=== PATIENT | female | born 1995 | race Caucasian/White ===

== ENCOUNTER → 2019-02-27 10:44 | Outpatient (CLI) | payer BC, SELFPAY ==
[2019-02-27 15:45] LABS: Chlamydia Trachomatis by PCR Negative (Negative); Neisserai gonorrhoeae by PCR Negative (Negative); Probe Check PASS; Sample Adequacy Control PASS; Specimen Processing Control PASS
== END ==
PROVIDERS: Visit Provider Obstetrics & Gynecology
DX: Z11.3 Encounter for screening for infections with a predominantly sexual mode of transmission (principal)
CPT/HCPCS: 87491; 87591

== ENCOUNTER → 2019-03-14 10:33 | Outpatient (CLI) | payer BC, SELFPAY ==
[2019-03-14 12:22] LABS: Color, Urine Yellow (Yellow); Glucose, Dipstick Normal (Normal); Ketone-Dipstick Negative (Negative); Leukocyte Esterase-Dipstick 500 /ul (Negative); Nitrite-Dipstick Negative (Negative); Occult Blood-Urine Negative /ul (Negative); Protein-Dipstick Negative (Negative); Specific Gravity, Urine 1.015 (1.002-1.030); Urine Bilirubin Dipstick Negative (Negative); Urine Clarity Clear (Clear); Urine Urobilinogen Normal (Normal)
[2019-03-14 12:26] LABS: Absolute Lymphocyte Count 1.67 X10^3/uL (0.83-4.51); Absolute Neutrophil Count 5.2 X10^3/uL (2.0-7.7); Basophil# 0.03 X10^3/uL; Basophil% 0.4 % (0-1); Eosinophil# 0.06 X10^3/uL; Eosinophils% 0.8 % (0-5); Hematocrit 42.3 % (37-47); Lymphocyte # 1.67 X10^3/ul (4.0); Lymphocyte % 22.5 % (19-41); Mean Corp Hgb Conc 33.1 g/dL (32-36); Mean Corpuscular Hgb 30.3 pg (27.0-32.0); Mean Corpuscular Volume 91.6 fL (81-99); Mean Platelet Vol. 11.4 fl (6.2-12.0); Monocyte# 0.43 X10^3/uL; Monocyte% 5.8 % (0-10); NRBC Flagged by Analyzer 0 % (0-5); Neutrophil # 5.23 X10^3/uL (2.7-7.7); Neutrophil % 70.4 % (47-70); Platelet Count 248 K/mm3 (150-450); RBC Distribution Width CV 12.6 % (11.6-14.6); RBC Distribution Width SD 42.4 fl (35.1-43.9); Red Blood Count 4.62 M/mm3 (4.2-5.4); White Blood Count 7.4 K/mm3 (4.4-11.0)
[2019-03-14 12:48] LABS: Thyroid Stim Hormone (TSH) 0.84 uIU/mL (0.358-3.74)
[2019-03-14 13:22] LABS: Amphetamine Urine VISTA NEGATIVE (<1000 ng/mL); Barbiturate Urine VISTA NEGATIVE (< 200 ng/mL); Benzodiazepine Urine VISTA NEGATIVE (< 200 ng/mL); Cocaine Urine VISTA NEGATIVE (< 300 ng/mL); Ecstacy Urine VISTA NEGATIVE (< 500 ng/mL); Methadone Urine VISTA NEGATIVE (< 300 ng/mL); PCP Urine VISTA NEGATIVE (< 25 ng/mL); THC Urine VISTA NEGATIVE (< 50 ng/mL); Vista UDS pH Range 6
[2019-03-14 13:46] LABS: HIV - WCH Non-Reactive (Nonreactive); Hepatitis B Surface Antigen Non-Reactive (Nonreactive); Hepatitis C Antibody Non-Reactive (Nonreactive); Rubella IgG 90.3 IU/mL
[2019-03-21 02:16] LABS: Prenatal RPR NONREACTIVE (NONREACTIVE)
== END ==
PROVIDERS: Visit Provider Advanced Practice Midwife
DX: Z34.81 Encounter for supervision of other normal pregnancy, first trimester (principal)
CPT/HCPCS: 36415; 80307; 81002; 84443; 85025; 86703; 86762; 86803; 87340

== ENCOUNTER → 2019-07-24 | Outpatient (CLI) | payer BC, SELFPAY ==
[2019-07-24 18:11] LABS: Hematocrit 35.2 % (37-47); Hemoglobin 11.6 g/dL (12.0-15.0); Mean Corpuscular Hgb 31.5 pg (27.0-32.0); Mean Corpuscular Volume 95.7 fL (81-99); Mean Platelet Vol. 12.5 fl (6.2-12.0); Platelet Count 190 K/mm3 (150-450); RBC Distribution Width CV 12.4 % (11.6-14.6); RBC Distribution Width SD 43.4 fl (35.1-43.9); Red Blood Count 3.68 M/mm3 (4.2-5.4); White Blood Count 7.2 K/mm3 (4.4-11.0)
[2019-07-24 18:15] LABS: Glucose Challenge Gest 1H 50g 83 mg/dL (70-140)
== END | disposition home or self-care (01) ==
PROVIDERS: Referring Provider Obstetrics & Gynecology; Visit Provider Obstetrics & Gynecology
DX: Z34.83 Encounter for supervision of other normal pregnancy, third trimester (principal)
CPT/HCPCS: 82950; 85027

== ENCOUNTER → 2019-09-19 18:09 | Outpatient (CLI) | payer BC, SELFPAY | PROVIDERS: Visit Provider Obstetrics & Gynecology | DX: Z36.85 Encounter for antenatal screening for Streptococcus B (principal) | CPT/HCPCS: 87081 ==

== ENCOUNTER → 2019-10-08 | Outpatient (CLI) | payer BC, SELFPAY | END | disposition home or self-care (01) | LOC: MTDU 17:43 | PROVIDERS: PCP Student in an Organized Health Care Education/Training Program; Referring Provider Obstetrics & Gynecology; Visit Provider Obstetrics & Gynecology | DX: Z11.59 Encounter for screening for other viral diseases (principal) | CPT/HCPCS: 87635; U0003 ==

== ENCOUNTER 2019-10-17 17:43 | Inpatient (IN) | payer BC, SELFPAY ==
[2019-10-17] VITALS (9 sets, daily range): BP systolic 108–132; BP diastolic 68–85; PULSE 56–75; TEMP 36.9–37.1; O2SAT 98–99; BMI 28.2
[2019-10-17] MEDS: Lactated Ringers 1,000 ML 50 ML IV (17:55)
[2019-10-17 18:32] LABS: Absolute Neutrophil Count 6.7 X10^3/uL (2.0-7.7); Basophil# 0.02 X10^3/uL; Basophil% 0.2 % (0-1); Eosinophil# 0.14 X10^3/uL; Eosinophils% 1.5 % (0-5); Hematocrit 37.5 % (37-47); Hemoglobin 12.5 g/dL (12.0-15.0); Lymphocyte % 20.3 % (19-41); Mean Corp Hgb Conc 33.3 g/dL (32-36); Mean Corpuscular Hgb 31.3 pg (27.0-32.0); Mean Platelet Vol. 13.9 fl (6.2-12.0); Monocyte# 0.56 X10^3/uL; NRBC Flagged by Analyzer 0 % (0-5); Neutrophil # 6.69 X10^3/uL (2.7-7.7); Neutrophil % 71.7 % (47-70); Platelet Count 166 K/mm3 (150-450); RBC Distribution Width CV 12.5 % (11.6-14.6); RBC Distribution Width SD 42.7 fl (35.1-43.9); Red Blood Count 3.99 M/mm3 (4.2-5.4); White Blood Count 9.3 K/mm3 (4.4-11.0)
--- NOTE | 2019-10-17 19:19 | HP.PCM_ITS ---
- Problem List (1) 40 weeks gestation of Status: Acute History Date of Admission: 10/17/19 Final ANATOLIY: 10/15/19 Final ANATOLIY Source: US <20 weeks Gestational age: 40 Weeks and 2 Days History of this : This is a 24 year-old, G [1], P [0], at 40 weeks gestational age. Allergies No Known Allergies Allergy (Verified 10/17/19 18:02) Home Medications: Home Medications Docusate Sodium [Colace] 100 mg PO DAILY 10/17/19 Vits [Prenatabs FA] 1 tab PO DAILY 10/17/19 Smoking Status: Never smoker Alcohol: None Number of Fetus(es): 1 NST - FHR Rate Baby A Baseline: 150 Variability:: Moderate Accelerations:: None Decelerations:: Variable NST Reactive:: Non-Reactive FHR Category:: Category II Uterine Activity:: quiet History Past Pregnancies: Past Pregnancies: None Labs: Mom's Problem List Problem Status Onset Code 40 weeks gestation of Acute [id number].[id number] Mom's Labs & Results 10/17/19 10/17/19 17:55 17:55 WBC 9.3 RBC 3.99 L Hgb 12.5 Hct 37.5 MCV 94.0 MCH 31.3 MCHC 33.3 RDW Std Deviation 42.7 RDW Coeff of Xavier 12.5 Plt Count 166 MPV 13.9 H Immature Gran % (Auto) 0.300 Neut % (Auto) 71.7 H Lymph % (Auto) 20.3 Summers % (Auto) 6.0 Eos % (Auto) 1.5 Baso % (Auto) 0.2 Absolute Neuts (auto) 6.7 Absolute Lymphs (auto) 1.90 Nucleated RBC % 0 Blood Type O POSITIVE Antibody Screen NEGATIVE Course Did the patient receive Yes care? Labs Blood Type: O RH: POSITIVE RPR/VDRL/Syphilis Nonreactive Rubella status Immune HbSAg Negative Date Done: 03/14/19 Chlamydia Negative Gonorrhea Negative HIV/AIDS Non-Reactive Group B Strep: Negative Current Obstetrical History Gestational Diabetes No Incompetent Cervix No Infertility No IUGR No Macrosomia No Hypertension/Pre-eclampsia No Placenta Previa/Abruption No PTL/PROM No Uterine anomaly No Oligohydramnios No Polyhydramnios No Multiple gestation No Past Medical History Asthma No Diabetes No Hypertension No Heart disease No Mitral valve prolapse No Neurologic/Seizure disorder/ No Migraines Kidney disease No Liver disease No Varicosities No Clotting disorders/Hx of DVT No Thyroid Dysfunction No Other medical diseases No Psychiatric disorders No Major trauma No Abnormal PAP smear No Sleep apnea No Mammogram in the last 2 years No Social History Marital Status: Alleged father isela nicholas Hx Smoking No Smoking Status Never smoker Expected Delivery Method: Spontaneous Vaginal Number of Visits: 14 Review of Systems Constitutional: Denies: Chills, Fever, Weight Change HEENT: Denies: Head Aches, Sinus Congestion, Sinus Drainage Cardiovascular: Denies: Chest Pain, Palpitations Respiratory: Denies: Cough, Shortness of breath at rest, Sputum production Gastrointestinal: Denies: Abdominal Pain, Nausea, Vomiting Genitourinary: Denies: Dysuria Musculoskeletal: Denies: Joint Pain, Joint Tenderness Skin: Denies: Rash, Wounds Neurological: Denies: Numbness, Tingling, Focal weakness Psychiatric: Denies: Anxiety, Depression, Homicidal Ideations, Suicidal Ideations Hematologic/ Lymphatic: Denies: Easy Bruising, Easy Bleeding Physical Exam Vitals: Vital Signs Temp Pulse BP Pulse Ox 98.8 F 66 120/78 99 10/17/19 17:52 10/17/19 17:56 10/17/19 17:56 10/17/19 17:56 General: Alert, Oriented x3, No apparent distress HEENT: Atraumatic, Normocephalic. Negative for: Thyromegaly, Lymphadenopathy Cardiovascular: Regular rate, Regular Rhythm Lungs: Clear to auscultation Abdomen: Bowel Sounds Present, Gravid Neurological: Deep Tendon Reflexes 2+/4 and Symmetrical, Neuro grossly intact VISUAL PRESENTATION MANAGER: Normal external genitalia. Negative for: Vulvar lesions Estimated gestational size: Appropriate for gestational size Presentation: Cephalic Cervix Dilation (cm): 2 Station: -1 Effacement (%): 50 Assessment/Plan All Active Problems 40 weeks gestation of (Acute) A/P: This is a 24 year-old, G [1], P [0], at 40 weeks gestational age. Elective induction of labor post term SVE 50/-1 NST Category I tracing AROM, clear fluid with bloody show If not having uterine contractions by 0200, will start low dose Pitocin protocol Plans in place for a Procedure Criteria Procedure Type: Elective COVID Risk Discussion: The surgeon/proceduralist and patient have discussed in detail the risk of exposure to and/or potential harm posed by the COVID-19 virus with having a surgery/procedure at this time versus the risk of delaying the surgery/procedure. It is not possible to know either the risk of delaying the surgery or procedure or chance of getting an infection with perfect accuracy, but a joint decision was made between the patient and the surgeon/proceduralist to proceed at this time with the scheduled surgery/procedure as indicated on the consent form.
[2019-10-17] MEDS: 0.9% Saline Lock 10 ML Syringe IV (20:00)
--- NOTE | 2019-10-17 20:48 | NURSING ---
Per Kt Flannery CNM, only start Pitocin at 0200 if patient is not having regular contractions.
[2019-10-18] VITALS (39 sets, daily range): BP systolic 107–143; BP diastolic 70–89; PULSE 60–137; RESP 16; TEMP 36.5–38.2; O2SAT 80–100
[2019-10-18] MEDS: Oxytocin 30 units/NS 500 ml 30 UNITS/500 ML IV.SOLN IV (02:29)
[2019-10-18] MEDS: Lactated Ringers 1,000 ML 200 ML IV (05:58)
--- NOTE | 2019-10-18 07:22 | PN.OBGYN_ITS ---
Patient Problems: Active and Suspected Problems 40 weeks gestation of (Acute) Subjective: Contractions are a 7/10 when peaking. Doing well though. Objective: VSS. UC Q1.5-3m. FHR baseline 140, +accels, -decels, moderate variability. - Physical Exam Vitals/I&O's: Vital Signs Temp Pulse BP Pulse Ox 98.0 F 66 130/88 H 99 10/18/19 08:17 10/18/19 07:21 10/18/19 07:21 10/18/19 07:21 Weight: 76.9 kg Body Mass Index (BMI) 28.2 Intake and Output for Last 24 Hours 10/16/19 10/17/19 10/18/19 23:59 23:59 23:59 Intake Total 104.17 / 104.17 1800.49 / 1800.49 Output Total 800 / 800 700 / 700 Balance -695.83 / -695.83 1100.49 / 1100.49 General: Alert, Oriented x3, Cooperative HEENT: Atraumatic, PERRLA, EOMI, Normocephalic Neck: Supple, No JVD, Negative Carotid Bruits Lungs: Clear to auscultation, Normal air movement Cardiovascular: Regular rate, No murmurs Abdomen: Bowel Sounds Present, Soft, Non Tender Extremities: No edema, Capillary Refill Less than 3 Seconds Skin: No rashes, No breakdown Musculoskeletal: No Tenderness to Palpation of Joints or Extremities Neurological: Cranial nerves II-XII grossly intact Psych/Mental Status: Normal Affect, Appropriate Laboratory Results 10/17/19 17:55: WBC 9.3, RBC 3.99 L, Hgb 12.5, Hct 37.5, MCV 94.0, MCH 31.3, MCHC 33.3, RDW Std Deviation 42.7, RDW Coeff of Xavier 12.5, Plt Count 166, MPV 13 .9 H, Immature Gran % (Auto) 0.300, Neut % (Auto) 71.7 H, Lymph % (Auto) 20.3, Lucas % (Auto) 6.0, Eos % (Auto) 1.5, Baso % (Auto) 0.2, Absolute Neuts (auto) 6.7, Absolute Lymphs (auto) 1.90, Nucleated RBC % 0 10/17/19 17:55: Blood Type O POSITIVE, Antibody Screen NEGATIVE Current Medications Acetaminophen (Tylenol) 325 - 650 mg PO Q4H PRN PRN PRN Reason: Pain Score 1-3/10 Al Hydroxide/Mg Hydroxide (Mylanta Ii) 15 - 30 ml PO Q4H PRN PRN PRN Reason: INDIGESTION Citric Acid/Sodium Citrate (Bicitra) 30 ml PO X1 PRN PRN Reason: Section Fentanyl Citrate (Sublimaze (100mcg Ampule)) 25 - 50 mcg IV Q2H PRN PRN PRN Reason: Pain Score 4-10/10 Lactated Ringer's () 500 mls @ 999 mls/hr IV .Q31M PRN PRN Reason: Epidural Lactated Ringer's () 500 mls @ 999 mls/hr IV .Q31M PRN PRN Reason: Corrective Measures Lactated Ringer's () 1,000 mls @ 50 mls/hr IV .Q20H CECILIA Last Admin: 10/18/19 05:58 Dose: 200 mls/hr Documented by: Oxytocin/Sodium Chloride () 30 units in 500 mls @ 1 mls/hr IV .Q500H [facility] Last Infusion: 10/18/19 05:15 Dose: 3 mls/hr Documented by: Ondansetron HCl (Zofran) 4 mg IV Q4H PRN PRN PRN Reason: NAUSEA Last Admin: 10/18/19 07:47 Dose: 4 mg Documented by: Prochlorperazine Edisylate (Compazine Iv) 10 mg IV Q6H PRN PRN PRN Reason: NAUSEA Sodium Chloride () 10 - 40 ml IV X1 PRN PRN Reason: SALINE FLUSH Last Admin: 10/18/19 07:47 Dose: 10 ml Documented by: Medical Necessity - Tobacco Use Smoking Status: Never smoker Assessment/Plan All Active Problems 40 weeks gestation of (Acute) A/P: SVE 6-7/90-0 UC 1.5-3m Active labor To continue natural labor Understands pain management options if wishing Expect
[2019-10-18] MEDS: 0.9% Saline Lock 10 ML Syringe IV (07:47)
[2019-10-18] MEDS: Ondansetron 4 MG/2 ML Vial IV (07:47)
[2019-10-18] MEDS: Oxytocin 30 units/NS 500 ml 30 UNITS/500 ML IV.SOLN 334 UNITS IV (09:30)
--- NOTE | 2019-10-18 10:07 | PCM.OPRPT ---
Problem List (1) 40 weeks gestation of Status: Acute Vaginal Delivery Maternal Presentation: Elective Induction Method of Induction: Amniotomy Amniotic Membrane Rupture Type: Artificial Amniotic Fluid Description: Clear Final ANATOLIY: 10/15/19 Final ANATOLIY Source: US <20 weeks Gestational age: 40 Weeks and 3 Days Date of Procedure: 10/18/19 Pre-Operative Diagnosis: IOL Post-Operative Diagnosis: Surgery/ Procedure Performed: Spontaneous Vaginal Delivery Type of Anesthesia: Local with 1% lidocaine Description of Procedure: Patient was FD at +2 station with spontaneous urge to push. She pushed well to deliver head in OA to DAVID. Snug shoulders noted and body delivered with gentle traction by CNM with maternal efforts. The was placed on the maternal abdomen. The cord was doubly clamped and cut when pulsation ceased by FOB under CNM supervision at approximately 4 minutes of life and further attended by nursery personnel. Cord blood was obtained. With gentle traction the placenta delivered spontaneously and appeared intact on inspection. With fundal massage, uterine bleeding noted. IV Pitocin started wide open. Manual expression of small blood clots from uterine cavity. Bleeding then well controlled. Second degree perineal/vaginal floor laceration noted. Repaired with a 3.0 rapide double with local Lidocaine 1%. EBL 400. Apgars 8/9. Sponge and needle counts correct x 2. Presentation: Vertex, DAVID Placental Delivery Description: Spontaneous Placenta Disposition: [facility] Cord Vessel Description: 3 Vessels Cord Entanglement: None Estimated Blood Loss: 400 Infant A gender: Female (1 minute): 8 (5 minute): 9 Episiotomy Description: None Laceration: Perineal Extension/lac, 2nd degree Medications given after delivery: IV Pitocin
[2019-10-18] MEDS: Methylergonovine 0.2 MG/ML Ampul IM (11:20)
[2019-10-18] MEDS: Ibuprofen 600 MG Tablet PO (11:41)
--- NOTE | 2019-10-18 16:53 | DCINST_ITS ---
Discharge Diet: No Restrictions Discharge Activity: Return to Normal Activity, May not drive while taking narcotic pain medications., May Shower May resume sexual activity in: 4-6 weeks Additional Activity Instructions:: Nothing in the vagina for 4-6 weeks. You may return to work/school in 6 weeks. Call your doctor if your incision/area has: Continuous Slow Oozing, Sudden Increased Bleeding, Increased Pain/ Swelling, Increased Redness, Foul Smelling Discharge Additional Instructions: If you experience any of the following, contact your healthcare provider. * Bleeding that soaks a pad every hour for 2 hours * Fever 100.4 or higher * Unrelieved incision or abdominal pain * Swelling, redness, discharge or bleeding from your incision or episiotomy site * Your incision begins to separate * Problems urinating (including inability to urinate or burning while urinating). * Visual changes * Severe headache * Flu-like symptoms * Pain or redness in one of both of your breasts * Pain, warmth, tenderness or swelling in your legs, especially the calf area * Frequent nausea and vomiting * Symptoms of depression or anxiety If you experience any of the following, call 911 or go to the nearest Emergency Room. * Chest pain * Problems breathing * Seizure activity * Partial or complete paralysis of a body part, slurred speech, weakness or drooping of the face, or a sudden inability to walk or hold your balance Allergies/Adverse Reactions: Allergies No Known Allergies Allergy (Verified 10/17/19 18:02) Medications to take at Discharge Docusate Sodium [Colace] 100 mg PO DAILY 10/17/19 Vits [Prenatabs FA] 1 tab PO DAILY 10/17/19 Please Follow Up With: Delma Flannery CNM When: Call to make an appointment with your CNM for a 2 week telehealth appointment and a routine 6 week appointment. Primary Care Physician: Luis Lisa DO [Primary Care Provider] - Test Results: Test results from this visit will be discussed in further detail at your follow- up appointment, if applicable.
[2019-10-19 04:28] VITALS: BP 117/74; PULSE 74
[2019-10-19 04:30] VITALS: BP 117/74; PULSE 74; RESP 18; TEMP 37.1
--- NOTE | 2019-10-19 04:38 | NURSING ---
Upon assessment of patient's bleeding, clot noted in patient's pad. Clot was smaller than a golf ball, but larger than a quarter. Educated patient on appropriate amounts of bleeding. Patient states that she noticed a clot about the same size in her pad earlier. Fundus remains 2 below, firm, and midline.
[2019-10-19 04:56] LABS: Hematocrit 30.1 % (37-47); Hemoglobin 10.1 g/dL (12.0-15.0); Mean Corp Hgb Conc 33.6 g/dL (32-36); Mean Corpuscular Hgb 31.4 pg (27.0-32.0); Mean Corpuscular Volume 93.5 fL (81-99); Mean Platelet Vol. 13.7 fl (6.2-12.0); Platelet Count 142 K/mm3 (150-450); RBC Distribution Width CV 12.5 % (11.6-14.6); RBC Distribution Width SD 42.9 fl (35.1-43.9); Red Blood Count 3.22 M/mm3 (4.2-5.4); White Blood Count 15.3 K/mm3 (4.4-11.0)
[2019-10-19 05:03] LABS: Scan Indicated on CBC? Y/N NO
[2019-10-19 08:20] VITALS: BP 130/86; PULSE 94; RESP 16; TEMP 36.1
[2019-10-19] MEDS: Ibuprofen 600 MG Tablet PO (08:22)
[2019-10-19 08:23] VITALS: BP 130/86; PULSE 94
--- NOTE | 2019-10-19 09:27 | PCM.PN.OB ---
Patient Problems: Active and Suspected Problems 40 weeks gestation of (Acute) Subjective: Denies pain, just mild cramping. Denies heavy bleeding. is going okay at times, but having latch issues. Has been up out of bed ambulating in her room, tolerating a regular diet, urinating well and passing flatus. Objective: VSS. Fundus is firm, midline, u/1. Lochia rubra moderate. - Physical Exam Vitals/I&O's: Vital Signs Temp Pulse Resp BP Pulse Ox 97 F L 94 16 130/86 H 98 10/19/19 08:20 10/19/19 08:23 10/19/19 08:20 10/19/19 08:23 10/18/19 20:48 Oxygen Delivery Method Room Air Weight: 76.9 kg Body Mass Index (BMI) 28.2 Intake and Output for Last 24 Hours 10/17/19 10/18/19 10/19/19 23:59 23:59 23:59 Intake Total 104.17 / 104.17 2996.22 / 2996.22 Output Total 800 / 800 750 / 750 Balance -695.83 / -695.83 2246.22 / 2246.22 General: Alert, Oriented x3, Cooperative HEENT: Atraumatic, PERRLA, EOMI, Normocephalic Neck: Supple, No JVD, Negative Carotid Bruits Lungs: Clear to auscultation, Normal air movement Cardiovascular: Regular rate, No murmurs Abdomen: Bowel Sounds Present, Soft, Non Tender Extremities: No edema, Capillary Refill Less than 3 Seconds Skin: No rashes, No breakdown Musculoskeletal: No Tenderness to Palpation of Joints or Extremities Neurological: Cranial nerves II-XII grossly intact Psych/Mental Status: Normal Affect, Appropriate Laboratory Results 10/19/19 04:45: WBC 15.3 H, RBC 3.22 L, Hgb 10.1 L, Hct 30.1 L, MCV 93.5, MCH 31.4, MCHC 33.6, RDW Std Deviation 42.9, RDW Coeff of Xavier 12.5, Plt Count 142 L, MPV 13.7 H Current Medications Acetaminophen (Tylenol) 1,000 mg PO Q8H PRN PRN PRN Reason: Pain Score 1-3/10 Bisacodyl (Dulcolax) 10 mg RECTAL UD PRN PRN Reason: If no BM Hydrocortisone (Hytone) 1 applic TOPICAL TID PRN PRN; Protocol PRN Reason: Discomfort Ibuprofen (Motrin) 600 mg PO Q6H PRN PRN PRN Reason: Pain Score 1-3/10 Last Admin: 10/19/19 08:22 Dose: 600 mg Documented by: Methylergonovine Maleate (Methergine) 0.2 mg IM X1 PRN PRN Reason: Excess bleeding/uterine atony Last Admin: 10/18/19 11:20 Dose: 0.2 mg Documented by: Ondansetron HCl (Zofran) 4 mg IV Q4H PRN PRN PRN Reason: Nausea Oxycodone HCl (Oxyir) 5 - 10 mg PO Q4H PRN PRN PRN Reason: Pain Score 4-10/10 Senna/Docusate Sodium (Senokot-S, Mayra-Colace) 1 - 2 tablet PO DAILY PRN PRN PRN Reason: Constipation Simethicone (Mylicon) 80 mg PO PCHS PRN PRN Reason: Indigestion/Stomach pain Sodium Chloride () 5 - 15 ml IV UD PRN PRN Reason: SALINE FLUSH Throat Lozenges (Dermoplast (Sp)) 1 applic TOPICAL 4X/DAY PRN PRN; Protocol PRN Reason: Pain/Inflammation Last Admin: 10/18/19 12:44 Dose: 1 applic Documented by: Medical Necessity - Tobacco Use Smoking Status: Never smoker Assessment/Plan All Active Problems 40 weeks gestation of (Acute) A/P: S/P Day #1 Normal involution and course mother, having latching issues. Working with currently Wants to discharge today, but may wait until later today or tomorrow for support Mother and father educated on support, signs of depression, normal involution and lochia, and resting at home Dyad stable May discharge today or tomorrow
[2019-10-19 13:37] VITALS: BP 97/55; PULSE 84
[2019-10-19 14:00] VITALS: BP 97/55; PULSE 84; RESP 15; TEMP 37.1
--- NOTE | 2019-10-19 15:10 | NURSING ---
discharge instructions given pt verbalizes understanding; denies need for any further or maternal care teaching; Lilian into assist with nursing
== END 2019-10-19 16:25 | disposition home or self-care (01) | DRG 807 ==
PROVIDERS: Admitting Provider Obstetrics & Gynecology; PCP Student in an Organized Health Care Education/Training Program; Visit Provider Obstetrics & Gynecology
DX: O48.0 Post-term pregnancy (principal); Z37.0 Single live birth; Z3A.40 40 weeks gestation of pregnancy; O70.1 Second degree perineal laceration during delivery
CPT/HCPCS: 59025; 59050; 85025; 85027; 86850; 86900; 86901; 99218; J7120; A4216; G0378; J2405

== ENCOUNTER → 2019-11-27 11:50 | Outpatient (CLI) | payer BC, SELFPAY ==
[2019-10-17 17:59] VITALS: BMI 28.2
[2019-11-29 16:08] LABS: Age Gdln ACOG Testing 21-29 (.)
[2019-11-30 13:02] LABS: HPV Reflexed? NOT INDICATED
== END ==
PROVIDERS: PCP Student in an Organized Health Care Education/Training Program; Visit Provider Obstetrics & Gynecology
DX: Z12.4 Encounter for screening for malignant neoplasm of cervix (principal)
CPT/HCPCS: 88175; G0145

== ENCOUNTER → 2020-09-07 | Outpatient (CLI) | payer BC, SELFPAY ==
[2019-10-17 17:59] VITALS: BMI 28.2
[2020-09-10 03:07] LABS: Chlamydia By Nucleic Acid AMP Negative (Negative)
[2020-09-10 08:42] LABS: Gonococcus By Nucleic Acid AMP Negative (Negative)
== END | disposition home or self-care (01) ==
LOC: LABSPEC 09-08 09:09
PROVIDERS: PCP Student in an Organized Health Care Education/Training Program; Visit Provider Obstetrics & Gynecology
DX: Z11.3 Encounter for screening for infections with a predominantly sexual mode of transmission (principal)
CPT/HCPCS: 87491; 87591

== ENCOUNTER → 2020-09-21 15:59 | Outpatient (CLI) | payer BC, SELFPAY ==
[2019-10-17 17:59] VITALS: BMI 28.2
[2020-09-21 17:15] LABS: Absolute Neutrophil Count 5.6 X10^3/uL (2.0-7.7); Basophil# 0.03 X10^3/uL; Basophil% 0.3 % (0-1); Eosinophil# 0.13 X10^3/uL; Eosinophils% 1.5 % (0-5); Hematocrit 42.6 % (37-47); Lymphocyte % 27.9 % (19-41); Mean Corp Hgb Conc 32.9 g/dL (32-36); Mean Corpuscular Hgb 30.4 pg (27.0-32.0); Mean Corpuscular Volume 92.4 fL (81-99); Mean Platelet Vol. 11.3 fl (6.2-12.0); Monocyte# 0.45 X10^3/uL; Monocyte% 5.2 % (0-10); NRBC Flagged by Analyzer 0 % (0-5); Neutrophil # 5.56 X10^3/uL (2.7-7.7); Neutrophil % 64.8 % (47-70); Platelet Count 287 K/mm3 (150-450); RBC Distribution Width CV 12.2 % (11.6-14.6); RBC Distribution Width SD 41.9 fl (35.1-43.9); Red Blood Count 4.61 M/mm3 (4.2-5.4); White Blood Count 8.6 K/mm3 (4.4-11.0)
[2020-09-22 09:11] LABS: HIV - WCH Non-Reactive (Nonreactive); Hepatitis B Surface Antigen Non-Reactive (Nonreactive); Hepatitis C Antibody Non-Reactive (Nonreactive); Rubella IgG Reactive (Nonreactive); Syphilis Antibodies Non-reactive
== END ==
PROVIDERS: PCP Student in an Organized Health Care Education/Training Program; Visit Provider Obstetrics & Gynecology
DX: Z34.81 Encounter for supervision of other normal pregnancy, first trimester (principal)
CPT/HCPCS: 36415; 85025; 86703; 86762; 86780; 86803; 87086; 87340

== ENCOUNTER → 2021-01-15 15:17 | Outpatient (CLI) | payer BC, SELFPAY ==
[2021-01-15 16:13] LABS: Hematocrit 37.8 % (37-47); Hemoglobin 12.3 g/dL (12.0-15.0); Mean Corp Hgb Conc 32.5 g/dL (32-36); Mean Corpuscular Hgb 31.3 pg (27.0-32.0); Mean Corpuscular Volume 96.2 fL (81-99); Mean Platelet Vol. 12.2 fl (6.2-12.0); Platelet Count 194 K/mm3 (150-450); RBC Distribution Width CV 12.6 % (11.6-14.6); RBC Distribution Width SD 44.8 fl (35.1-43.9); Red Blood Count 3.93 M/mm3 (4.2-5.4)
[2021-01-15 16:23] LABS: Glucose Challenge Gest 1H 50g 88 mg/dL (70-140)
== END ==
PROVIDERS: PCP Student in an Organized Health Care Education/Training Program; Visit Provider Obstetrics & Gynecology
DX: Z34.82 Encounter for supervision of other normal pregnancy, second trimester (principal)
CPT/HCPCS: 36415; 82950; 85027

== ENCOUNTER → 2021-03-31 | Outpatient (CLI) | payer BC, SELFPAY | END | disposition home or self-care (01) | LOC: LABSPEC 16:42 | PROVIDERS: PCP Student in an Organized Health Care Education/Training Program; Visit Provider Obstetrics & Gynecology | DX: Z36.85 Encounter for antenatal screening for Streptococcus B (principal) | CPT/HCPCS: 87081 ==

== ENCOUNTER 2021-04-26 17:20 | Inpatient (IN) | payer BC, SELFPAY ==
[2021-04-26] VITALS (12 sets, daily range): BP systolic 107–135; BP diastolic 62–84; PULSE 65–82; TEMP 36.3–36.4; O2SAT 96; BMI 28.3
[2021-04-26] MEDS: Lactated Ringers 1,000 ML 50 ML IV (17:40)
[2021-04-26 18:28] LABS: Absolute Lymphocyte Count 2.36 X10^3/uL (0.83-4.51); Absolute Neutrophil Count 7.9 X10^3/uL (2.0-7.7); Basophil# 0.02 X10^3/uL; Basophil% 0.2 % (0-1); Eosinophil# 0.08 X10^3/uL; Eosinophils% 0.7 % (0-5); Hematocrit 35.6 % (37-47); Hemoglobin 12.1 g/dL (12.0-15.0); Lymphocyte # 2.36 X10^3/ul (0.83-4.51); Lymphocyte % 21.5 % (19-41); Mean Corpuscular Hgb 30.1 pg (27.0-32.0); Mean Corpuscular Volume 88.6 fL (81-99); Mean Platelet Vol. 13.6 fl (6.2-12.0); Monocyte# 0.56 X10^3/uL; Monocyte% 5.1 % (0-10); NRBC Flagged by Analyzer 0 % (0-5); Neutrophil # 7.92 X10^3/uL (2.7-7.7); Neutrophil % 72.2 % (47-70); Platelet Count 202 K/mm3 (150-450); RBC Distribution Width CV 12.4 % (11.6-14.6); RBC Distribution Width SD 40.2 fl (35.1-43.9); Red Blood Count 4.02 M/mm3 (4.2-5.4)
[2021-04-26] MEDS: Oxytocin 30 units/NS 500 ml 30 UNITS/500 ML IV.SOLN 334 UNITS IV (18:38)
--- NOTE | 2021-04-26 18:44 | PCM.HP.BLA ---
History and Physical Date of Admission: 04/26/21 HPI: 26-year-old G2, P1 at 40/4 weeks, ANATOLIY 04/26/2021 by LMP, admitted in labor. Patient was 5 cm in office last week and is now 6 cm with regular contractions. Denies leaking of fluid, vaginal bleeding. Reports movement. Denies headache, vision changes, chest pain or shortness of breath, nausea or vomiting, diarrhea or constipation, fevers or chills. 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 G2: Current Medical history: Denies Surgical history: Denies Medications: vitamin Family history: Hypertension, otherwise noncontributory Allergies: No known drug allergies Social: Denies tobacco, alcohol, drug use Review of systems: Negative otherwise stated as above Physical exam Vitals:Blood pressure 97/55 heart rate 84 respiratory rate 15 temp 98.7 ?F General: Uncomfortable with contractions, otherwise in no acute distress HEENT: Normocephalic/atraumatic, PERRLA Cardiorespiratory: No increased effort, heart regular rate Abdomen: Soft, nontender, gravid Extremities: Minimal edema Neurologic: Cranial nerves II through XII grossly intact Musculoskeletal: Full range of motion and strength 5/5 all extremities Cervical exam: 6/70/0, AROM clear fluids heart rate: 140/moderate variability/+accel/variable decel x1 [place]: Every 3 panel O+ HIV negative Hepatitis B/hepatitis C negative/negative Gonorrhea/chlamydia negative Syphilis negative Rubella immune GBS neg 03/31 Assessment/plan: 26-year-old G2, P1 at 40/4 weeks, ANATOLIY 04/26/2021 by LMP, admitted in labor. -Routine orders -Plans no epidural -Plan for intermittent auscultation -Expectant management at this time
--- NOTE | 2021-04-26 18:51 | OP.PCM_ITS ---
Maternal Data Information Final ANATOLIY: 04/26/21 Final ANATOLIY Source: LMP Vaginal Delivery Maternal Presentation Maternal Presentation: Active Labor Operative Information Date of Procedure: 04/26/21 Pre-Operative Diagnosis: Bess intrauterine Post-Operative Diagnosis: Bess intrauterine Surgery / Procedure Performed: Spontaneous Vaginal Delivery Type of Anesthesia: None Estimated Blood Loss: 350cc Findings Description of Procedure: Spontaneous vaginal delivery of viable male. No nuchal cord. Baby to mom. Cord clamped and cut. Spontaneous delivery of placenta . Periurethral abrasion, hemostatic. Infant A Gender: Male (1 minute): 8 (5 minute): 9
[2021-04-26] MEDS: Ibuprofen 600 MG Tablet PO (19:11)
[2021-04-26] MEDS: Dibucaine 30 GM Tube 1 APPLIC TOPICAL (19:12)
[2021-04-26] MEDS: Acetaminophen 500 MG Tablet 1000 MG PO (19:12)
[2021-04-26] MEDS: Benzocaine/Lanolin/Aloe Vera 1 SPRAY EACH TOPICAL (19:12)
[2021-04-27 01:09] VITALS: BP 120/81; PULSE 75; RESP 16; TEMP 36.3; O2SAT 97
[2021-04-27 03:25] VITALS: BP 114/72; PULSE 73; RESP 16; TEMP 36.4; O2SAT 97
--- NOTE | 2021-04-27 08:50 | PCM.PN.OB ---
Subjective Subjective No issues overnight. Doing well and is without complaints. is going well. Denies heavy lochia. Objective Data Objective Data Vital Signs: Vital Signs Temp Pulse Resp BP Pulse Ox 97.5 F L 73 16 114/72 97 04/27/21 03:25 04/27/21 03:25 04/27/21 03:25 04/27/21 03:25 04/27/21 03:25 Oxygen Delivery Method Room Air Weight: 77.224 kg Body Mass Index (BMI) 28.3 Intake & Output: Intake and Output for Last 24 Hours 04/25/21 04/26/21 04/27/21 23:59 23:59 23:59 Intake Total 566.67 / 566.67 Output Total 300 / 300 Balance 266.67 / 266.67 Lab / Micro Data Result Diagrams: 04/26/21 17:40 Labs: Laboratory Results - last 24 hr 04/26/21 17:40: WBC 11.0, RBC 4.02 L, Hgb 12.1, Hct 35.6 L, MCV 88.6, MCH 30.1, MCHC 34.0, RDW Std Deviation 40.2, RDW Coeff of Xavier 12.4, Plt Count 202, MPV 13.6 H, Immature Gran % (Auto) 0.300, Neut % (Auto) 72.2 H, Lymph % (Auto) 21.5, [place] % (Auto) 5.1, Eos % (Auto) 0.7, Baso % (Auto) 0.2, Absolute Neuts (auto) 7.9 H, Absolute Lymphs (auto) 2.36, Nucleated RBC % 0 04/26/21 17:40: Blood Type O POSITIVE, Antibody Screen NEGATIVE Micro: Microbiology 04/26/21 18:05 Nasal Secretion SARS-CoV-2 Antigen (Rapid) - Final ROS Eyes Eyes: Denies other visual disturbances ENT HEENT: Denies headache(s) Cardiovascular Cardiovascular: Denies abdominal pain, chest pain or dyspnea Gastrointestinal Gastrointestinal: Reports none Genitourinary Genitourinary: Reports other Details: Denies heavy lochia or perineal pain Physical Exam Const alert, oriented x3 and no apparent distress General Appearance: cooperative and comfortable HEENT normocephalic Resp Auscultation: clear to auscultation bilaterally Cardio regular rate, regular rhythm, S1 normal heart sound and S2 normal heart sound OB / External & Speculum: other Uterus Palpation: other OB Fundus firm and nontender Extremity General Extremity: edema bilateral (trace) lower extremity Assessment & Plan (1) (spontaneous vaginal delivery): PLAN: PPD#1 s/p uncomplicated -O positive, Rub immune, HIV nr, RPR nr, HBsAg neg, HCV Ab neg - -Routine care -d/c home later today
--- NOTE | 2021-04-27 08:54 | PCM.DC ---
Discharge Instructions Diet Discharge Diet: No restrictions Activity Discharge Activity: Return to Normal Activity May resume sexual activity in: 4-6 weeks Lifting Restrictions: 20-25 lb Dressing / Incision Call your doctor if you observe: Fever of 101 or Higher, Using more than 1 pad per hour, Shortness of breath, Chest pain, Calf discomfort, Uncontrolled pain and - (Persistent or severe headache) Follow Up Care Please Follow Up With: Juan Way MD When: 3 weeks for telehealth follow up 6 weeks for visit Test Results: Test results from this visit will be discussed in further detail at your follow-up appointment, if applicable. Discharge Plan Admission Admit Date/Time: 04/26/21 17:20 Primary Reason for Your Visit: Vaginal delivery Attending Provider: Amie Way Primary Care Provider: Luis Lisa Discharge Orders/Prescriptions Prescriptions: No Action docusate sodium 100 MG capsule 100 mg PO DAILY RF: 0 [id number] 1 TABLET tablet 1 tab PO DAILY RF: 0 Referrals / Follow Up: Luis Lisa DO [Primary Care Provider] - Disposition Disposition (needs filled in before D/C Order can be placed): Home, Self Care
[2021-04-27 09:39] VITALS: BP 106/79; PULSE 64; RESP 16; TEMP 36.2; O2SAT 97
[2021-04-27 12:45] VITALS: BP 109/66; PULSE 81; RESP 16; TEMP 36.4; O2SAT 97
[2021-04-27 16:33] VITALS: BP 95/56; PULSE 77; RESP 16; TEMP 36.5
== END 2021-04-27 20:00 | disposition home or self-care (01) | DRG 807 ==
LOC: WP 04-27 08:48 → WPOUT 04-27 13:18
PROVIDERS: Admitting Provider Student in an Organized Health Care Education/Training Program; PCP Student in an Organized Health Care Education/Training Program; Referring Provider Student in an Organized Health Care Education/Training Program; Visit Provider Student in an Organized Health Care Education/Training Program
DX: O48.0 Post-term pregnancy (principal); Z37.0 Single live birth; O76 Abnormality in fetal heart rate and rhythm complicating labor and delivery; Z3A.40 40 weeks gestation of pregnancy
CPT/HCPCS: 59025; 59050; 85025; 86850; 86900; 86901; 87426; 99218; J7120; G0378

== ENCOUNTER → 2022-01-14 | Outpatient (CLI) | payer BC, SELFPAY ==
[2022-01-14 11:00] LABS: Absolute Lymphocyte Count 1.43 X10^3/uL (0.83-4.51); Absolute Neutrophil Count 4.5 X10^3/uL (2.0-7.7); Basophil# 0.02 X10^3/uL; Basophil% 0.3 % (0-1); Eosinophil# 0.06 X10^3/uL; Eosinophils% 0.9 % (0-5); Hematocrit 39.8 % (37-47); Hemoglobin 13.6 g/dL (12.0-15.0); Lymphocyte # 1.43 X10^3/ul (0.83-4.51); Lymphocyte % 22.4 % (19-41); Mean Corp Hgb Conc 34.2 g/dL (32-36); Mean Corpuscular Hgb 30.9 pg (27.0-32.0); Mean Corpuscular Volume 90.5 fL (81-99); Monocyte# 0.39 X10^3/uL; Monocyte% 6.1 % (0-10); NRBC Flagged by Analyzer 0 % (0-5); Neutrophil # 4.48 X10^3/uL (2.7-7.7); Neutrophil % 70.1 % (47-70); Platelet Count 251 K/mm3 (150-450); RBC Distribution Width CV 13.1 % (11.6-14.6); RBC Distribution Width SD 43.3 fl (35.1-43.9); White Blood Count 6.4 K/mm3 (4.4-11.0)
[2022-01-14 11:59] LABS: HIV - WCH Non-Reactive (Nonreactive); Hepatitis B Surface Antigen Non-Reactive (Nonreactive); Hepatitis C Antibody Non-Reactive (Nonreactive); Rubella IgG Reactive (Nonreactive); Syphilis Antibodies Non-reactive
[2022-01-15 12:20] LABS: V-Zoster IgG (Immunity) 611 index (Immune >165)
[2022-01-17 22:06] LABS: Chlamydia By Nucleic Acid AMP Negative (Negative)
[2022-01-18 13:00] LABS: Gonococcus By Nucleic Acid AMP Negative (Negative)
== END | disposition home or self-care (01) ==
LOC: WOBLAB 10:18
PROVIDERS: PCP Student in an Organized Health Care Education/Training Program; Visit Provider Obstetrics & Gynecology
DX: Z34.81 Encounter for supervision of other normal pregnancy, first trimester (principal)
CPT/HCPCS: 36415; 85025; 86703; 86762; 86780; 86787; 86803; 87086; 87088; 87340; 87491; 87591

== ENCOUNTER → 2022-04-29 | Outpatient (CLI) | payer BC, SELFPAY ==
[2022-04-29 15:22] LABS: Absolute Lymphocyte Count 1.55 X10^3/uL (0.83-4.51); Basophil# 0.03 X10^3/uL; Basophil% 0.2 % (0-1); Eosinophil# 0.11 X10^3/uL; Eosinophils% 0.9 % (0-5); Hematocrit 37.6 % (37-47); Hemoglobin 12.5 g/dL (12.0-15.0); Lymphocyte # 1.55 X10^3/ul (0.83-4.51); Lymphocyte % 12.6 % (19-41); Mean Corp Hgb Conc 33.2 g/dL (32-36); Mean Corpuscular Hgb 30.3 pg (27.0-32.0); Mean Platelet Vol. 11.4 fl (6.2-12.0); Monocyte# 0.54 X10^3/uL; Monocyte% 4.4 % (0-10); NRBC Flagged by Analyzer 0 % (0-5); Neutrophil # 10.02 X10^3/uL (2.7-7.7); Neutrophil % 81.5 % (47-70); Platelet Count 233 K/mm3 (150-450); RBC Distribution Width CV 13.2 % (11.6-14.6); RBC Distribution Width SD 42.9 fl (35.1-43.9); Red Blood Count 4.13 M/mm3 (4.2-5.4); White Blood Count 12.3 K/mm3 (4.4-11.0)
[2022-04-29 15:56] LABS: Glucose Challenge Gest 1H 50g 79 mg/dL (70-140)
== END | disposition home or self-care (01) ==
LOC: WOBLAB 14:16
PROVIDERS: PCP Student in an Organized Health Care Education/Training Program; Visit Provider Obstetrics & Gynecology
DX: Z34.82 Encounter for supervision of other normal pregnancy, second trimester (principal)
CPT/HCPCS: 36415; 82950; 85025

== ENCOUNTER → 2022-07-21 | Outpatient (CLI) | payer BC, SELFPAY ==
[2022-07-21 15:48] LABS: Absolute Lymphocyte Count 2.07 X10^3/uL (0.83-4.51); Absolute Neutrophil Count 6.3 X10^3/uL (2.0-7.7); Basophil# 0.02 X10^3/uL; Basophil% 0.2 % (0-1); Eosinophil# 0.08 X10^3/uL; Eosinophils% 0.9 % (0-5); Hematocrit 33.2 % (37-47); Hemoglobin 10.9 g/dL (12.0-15.0); Lymphocyte # 2.07 X10^3/ul (0.83-4.51); Lymphocyte % 23.3 % (19-41); Mean Corp Hgb Conc 32.8 g/dL (32-36); Mean Corpuscular Hgb 29.4 pg (27.0-32.0); Mean Corpuscular Volume 89.5 fL (81-99); Mean Platelet Vol. 12.3 fl (6.2-12.0); Monocyte# 0.43 X10^3/uL; Monocyte% 4.8 % (0-10); NRBC Flagged by Analyzer 0 % (0-5); Neutrophil # 6.25 X10^3/uL (2.7-7.7); Neutrophil % 70.2 % (47-70); Platelet Count 200 K/mm3 (150-450); RBC Distribution Width CV 12.1 % (11.6-14.6); RBC Distribution Width SD 40.2 fl (35.1-43.9); Red Blood Count 3.71 M/mm3 (4.2-5.4); White Blood Count 8.9 K/mm3 (4.4-11.0)
[2022-07-21 16:22] LABS: Syphilis Antibodies Non-reactive
== END | disposition home or self-care (01) ==
LOC: WOBLAB 14:11
PROVIDERS: PCP Student in an Organized Health Care Education/Training Program; Visit Provider Nurse Practitioner Women's Health
DX: Z34.83 Encounter for supervision of other normal pregnancy, third trimester (principal)
CPT/HCPCS: 36415; 85025; 86780

== ENCOUNTER 2022-08-13 09:53 | Inpatient (IN) | payer BC, SELFPAY ==
[2022-08-13] VITALS (17 sets, daily range): BP systolic 109–125; BP diastolic 66–82; PULSE 67–87; RESP 16; TEMP 36.7–37.2; O2SAT 98–99; BMI 27.6
[2022-08-13] MEDS: Lactated Ringers 1,000 ML 50 ML IV (10:05)
[2022-08-13 10:35] LABS: Absolute Neutrophil Count 7.2 X10^3/uL (2.0-7.7); Basophil# 0.02 X10^3/uL; Basophil% 0.2 % (0-1); Eosinophil# 0.05 X10^3/uL; Eosinophils% 0.5 % (0-5); Hemoglobin 11.5 g/dL (12.0-15.0); Lymphocyte % 17.2 % (19-41); Mean Corp Hgb Conc 32.9 g/dL (32-36); Mean Corpuscular Hgb 28.6 pg (27.0-32.0); Mean Corpuscular Volume 87.1 fL (81-99); Mean Platelet Vol. 12.6 fl (6.2-12.0); Monocyte# 0.42 X10^3/uL; Monocyte% 4.5 % (0-10); NRBC Flagged by Analyzer 0 % (0-5); Neutrophil # 7.16 X10^3/uL (2.7-7.7); Neutrophil % 77.1 % (47-70); Platelet Count 185 K/mm3 (150-450); RBC Distribution Width CV 12.7 % (11.6-14.6); RBC Distribution Width SD 40.3 fl (35.1-43.9); Red Blood Count 4.02 M/mm3 (4.2-5.4); White Blood Count 9.3 K/mm3 (4.4-11.0)
[2022-08-13] MEDS: 0.9% Saline Lock 10 ML Syringe IV ×2 (11:17→19:36)
--- NOTE | 2022-08-13 11:20 | PCM.HP.BLA ---
History and Physical Date of Admission: 08/13/22 Chief complaint: Contractions History present illness: 27-year-old at 39 weeks and 6 days with ANATOLIY 08/14/2022 arrives with contractions. Denies headache, vision change, chest pain, shortness of breath, nausea vomit, right upper quadrant pain. Patient states good movement. is complicated by BMI 27, GBS positive Obstetric history: G1: 40-week female 8 pounds 1 ounce G2: 40-week male 7 pounds 14 ounces G3: Current Past medical history: None Medications: vitamin Past surgical history: None Allergies: No known drug allergies Family history: Denies history DVT or PE Social history: Denies smoking, alcohol use, drug use Review of systems: Besides above pertinent positives a full review of systems was performed and found to be negative Physical exam: Vitals: Pulse 77 SPO2 98% on room air General: Normal-appearing no acute distress HEENT: Normocephalic/atraumatic no cervical lymphadenopathy Cardiac/respiratory: No use of accessory muscles, nonlabored breathing Abdomen: Soft, nontender, gravid Extremities: No peripheral edema normal peripheral pulses Psych: Normal affect and demeanor nonpressured speech Labs: White blood cell count 9.3 hemoglobin 11.5 hematocrit 35.0% platelets 185 Assessment and plan: 27-year-old G3, P2 at 39 weeks and 6 days with contractions. Called by nursing that patient is 6 cm and GBS positive given orders for penicillin and for admission. Patient seen and examined resting comfortably in bed going natural. Educated patient on plan for penicillin and labor. Patient and partner state understanding all questions answered. Admit labor and delivery CEFM GBS positive: For penicillin Routine orders
[2022-08-13 11:42] LABS: Syphilis Antibodies Non-reactive
[2022-08-13] MEDS: Penicillin G 3,000,000 Units 50 ML 100 UNITS IV (14:26)
--- NOTE | 2022-08-13 15:19 | PCM.PN.OB ---
Subjective Subjective Patient overall comfortable with contractions Objective Data Objective Data Vital Signs: Vital Signs Temp Pulse BP Pulse Ox 98.1 F 82 112/74 98 08/13/22 11:26 08/13/22 13:27 08/13/22 13:27 08/13/22 10:13 Weight: 166 lb 7.184 oz Body Mass Index (BMI) 27.6 Intake & Output: Intake and Output for Last 24 Hours 08/11/22 08/12/22 08/13/22 23:59 23:59 23:59 Intake Total 165 / 165 Balance 165 / 165 Lab / Micro Data Result Diagrams: 08/13/22 10:05 Labs: Laboratory Results - last 24 hr 08/13/22 10:05: WBC 9.3, RBC 4.02 L, Hgb 11.5 L, Hct 35.0 L, MCV 87.1, MCH 28.6, MCHC 32.9, RDW Std Deviation 40.3, RDW Coeff of Xavier 12.7, Plt Count 185, MPV 12.6 H, Immature Gran % (Auto) 0.500, Neut % (Auto) 77.1 H, Lymph % (Auto) 17.2 L, [place] % (Auto) 4.5, Eos % (Auto) 0.5, Baso % (Auto) 0.2, Absolute Neuts (auto) 7.2, Absolute Lymphs (auto) 1.60, Nucleated RBC % 0 08/13/22 10:05: Blood Type O POSITIVE, Antibody Screen NEGATIVE 08/13/22 10:05: Syphilis Total Ab Non-reactive Physical Exam Const alert, oriented x3, no apparent distress, average body habitus, healthy appearing and well nourished HEENT normocephalic and moist oral mucous membranes Eyes PERRL Neck full ROM Resp normal respiratory effort, no retractions and no use of accessory muscles GI GI Narrative: Soft, nontender, gravid Narrative: Cervical exam: / station. AROM clear fluid Extremity normal to inspection and full ROM Neuro moves all extremities and no focal motor deficits Psych mental status grossly normal, affect normal, speech normal and activity/motor behavior normal Assessment & Plan (1) : PLAN: Called by nursing patient now with adequate GBS prophylaxis, requesting AROM. Patient seen and examined. As above AROM clear fluid. We will continue current management. Educated patient and partner on plan all questions answered
[2022-08-13] MEDS: Oxytocin 10 UNITS/ML Vial IM (16:18)
[2022-08-13] MEDS: Oxytocin 15 Units/NS 250ml 15 UNITS/250 ML IV.SOLN 83 UNITS IV (16:23)
--- NOTE | 2022-08-13 16:34 | EX.PCM.OBRPT ---
Vaginal Delivery Findings Description of Procedure: Normal spontaneous vaginal delivery of a viable male , vertex CRISPIN. Head and shoulders delivered with ease. Cord clamped and cut. Baby handed off to patient and placenta delivered via cord traction and fundal massage intact. 10 units IM Pitocin and IV Pitocin given per protocol. No lacerations noted. Bladder drained for 100 cc. EBL 250 cc Apgars 9/9
[2022-08-13] MEDS: Methylergonovine 0.2 MG/ML Ampul IM (17:12)
[2022-08-13] MEDS: Ibuprofen 600 MG Tablet PO (17:48)
[2022-08-14] VITALS (10 sets, daily range): BP systolic 104–128; BP diastolic 64–83; PULSE 63–97; RESP 16; TEMP 36.2–36.6; O2SAT 98
[2022-08-14] MEDS: Ibuprofen 600 MG Tablet PO (09:18)
--- NOTE | 2022-08-14 10:22 | DCINST_ITS ---
Discharge Instructions Diet Discharge Diet: No restrictions Activity Discharge Activity: Return to Normal Activity, May Drive and May Shower May resume sexual activity in: 4-6 weeks Weight Bearing Status: Weight bearing as tolerated Dressing / Incision Call your doctor if your incision/area has: Continuous Slow Oozing and Foul Smelling Discharge Call your doctor if you observe: Fever of 101 or Higher, Shortness of breath and Chest pain Follow Up Care Please Follow Up With: Juan Way MD When: 4 to 6 weeks Test Results: Test results from this visit will be discussed in further detail at your follow- up appointment, if applicable. Discharge Plan Admission Admit Date/Time: 08/13/22 09:53 Attending Provider: Juan Way Primary Care Provider: Luis Lisa Discharge Orders/Prescriptions Prescriptions: No Action aspirin [Baby Aspirin] 81 mg Tablet,Chewable 81 mg PO DAILY Gummies 400 mcg-35 mg- 25 mg-5 mg Tablet,Chewable 2 tab PO DAILY Referrals / Follow Up: Luis Lisa DO [Primary Care Provider] - Disposition Discharge Orders: Discharge Patient (Routine); Ordered 08/14/22 Ordered By: Dr. Juan Way
--- NOTE | 2022-08-14 10:22 | PCM.PN.OB ---
Subjective Subjective No overnight complaint Objective Data Objective Data Vital Signs: Vital Signs Temp Pulse Resp BP Pulse Ox O2 Del Method 97.1 F L 92 16 115/83 H 98 Room Air 08/14/22 09:22 08/14/22 09:23 08/14/22 09:22 08/14/22 09:22 08/14/22 09:23 08/14/22 09:22 Oxygen Delivery Method Room Air Weight: 166 lb 7.184 oz Body Mass Index (BMI) 27.6 Intake & Output: Intake and Output for Last 24 Hours 08/12/22 08/13/22 08/14/22 23:59 23:59 23:59 Intake Total 1085 / 1085 Output Total 350 / 350 Balance 735 / 735 Lab / Micro Data Result Diagrams: 08/13/22 10:05 Labs: Laboratory Results - last 24 hr 08/13/22 10:05: WBC 9.3, RBC 4.02 L, Hgb 11.5 L, Hct 35.0 L, MCV 87.1, MCH 28.6, MCHC 32.9, RDW Std Deviation 40.3, RDW Coeff of Xavier 12.7, Plt Count 185, MPV 12.6 H, Immature Gran % (Auto) 0.500, Neut % (Auto) 77.1 H, Lymph % (Auto) 17.2 L, [place] % (Auto) 4.5, Eos % (Auto) 0.5, Baso % (Auto) 0.2, Absolute Neuts (auto) 7.2, Absolute Lymphs (auto) 1.60, Nucleated RBC % 0 08/13/22 10:05: Blood Type O POSITIVE, Antibody Screen NEGATIVE 08/13/22 10:05: Syphilis Total Ab Non-reactive Physical Exam Const alert, oriented x3, no apparent distress, average body habitus, healthy appearing and well nourished HEENT normocephalic and moist oral mucous membranes Eyes PERRL Neck full ROM Resp normal respiratory effort, no retractions and no use of accessory muscles Extremity normal to inspection and full ROM Neuro moves all extremities and no focal motor deficits Psych mental status grossly normal, affect normal, speech normal and activity/motor behavior normal Assessment & Plan (1) (spontaneous vaginal delivery): PLAN: day 1. Breast-feeding. Pain well controlled. 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
== END 2022-08-14 17:43 | disposition home or self-care (01) | DRG 807 ==
LOC: WPOUT 09:54 → WP 09:55
PROVIDERS: Admitting Provider Obstetrics & Gynecology; PCP Student in an Organized Health Care Education/Training Program; Referring Provider Obstetrics & Gynecology; Visit Provider Obstetrics & Gynecology
DX: O99.824 Streptococcus B carrier state complicating childbirth (principal); Z37.0 Single live birth; Z3A.39 39 weeks gestation of pregnancy
CPT/HCPCS: 59025; 59050; 85025; 86780; 86850; 86900; 86901; 99221; J7120; A4216; G0378

== ENCOUNTER → 2022-12-21 | Outpatient (CLI) | payer BC, SELFPAY ==
[2022-12-26 12:08] LABS: HPV APTIMA, High Risk Negative (Negative)
== END | disposition home or self-care (01) ==
PROVIDERS: PCP Student in an Organized Health Care Education/Training Program; Referring Provider Obstetrics & Gynecology; Visit Provider Obstetrics & Gynecology
DX: Z12.4 Encounter for screening for malignant neoplasm of cervix (principal)
CPT/HCPCS: 87624; 88175; G0145